=== PATIENT | male | born 1945 ===

== ENCOUNTER 2025-09-09 10:53 | Outpatient (RCR) | payer OTHER, SELFPAY | END 2025-09-09 11:43 | disposition home or self-care (01) | LOC: ANHCPREHAB 10:53 | PROVIDERS: Visit Provider Internal Medicine Cardiovascular Disease | DX: Z51.89 Encounter for other specified aftercare (principal); Z98.61 Coronary angioplasty status | CPT/HCPCS: 99199; 93798 ==